=== PATIENT | male | born 1970 | race African-American/Black ===

== ENCOUNTER 2024-10-11 02:26 | Inpatient (IN) | payer SELFPAY ==
[~2024-10-11] VITALS: Ht 185.4 cm; Wt 127.9 kg
[2024-10-11] VITALS (64 sets, daily range): BP systolic 116–188; BP diastolic 73–118; PULSE 50–86; RESP 10–32; TEMP 36.4–36.9; O2SAT 95–100
[~2024-10-11 02:26] MED LIST: NONE REPORTED
[2024-10-11] MEDS: MORPHINE SULFATE 4 MG/ML INJ (FOR IV/IM USE) IV STA (02:49)
[2024-10-11] MEDS: NITROGLYCERIN OINT 1GM/INCH UDPKT TD ONE (02:49)
[2024-10-11] MEDS: ASPIRIN 81MG TABLET PO ONE (03:15)
[2024-10-11] MEDS: HEPARIN 5000 UNITS/ML VIAL IV ONE (03:15)
[2024-10-11 03:18] LABS: DIFFERENTIAL COMMENT 0; EOSINOPHILS % 0.7 % (0.0-5.0); HEMATOCRIT. 38.9 % (42.0-52.0); HEMOGLOBIN. 12.4 g/dL (14.0-18.0); LYMPHOCYTES % 39.9 % (20.0-50.0); MEAN CORPUSCULAR HEMOGLOBIN 25.3 pg (28.0-32.0); MEAN CORPUSCULAR VOLUME 79.2 fL (80.0-94.0); MEAN PLATELET VOLUME 9.6 fl (7.4-10.4); MONOCYTES % 7.8 % (2.0-8.0); NEUTROPHILS % 50.6 % (40.0-76.0); PLATELET 188 x1000/uL (130-400); RED CELL DISTRIBUTION WIDTH 17.6 % (11.6-14.6); WHITE BLOOD COUNT 8.7 x1000/uL (4.5-11.0)
[2024-10-11 03:25] LABS: PROTHROMBIN TIME 10.3 sec (9.6-11.0)
[2024-10-11] MEDS ORDERED: IODIXANOL 320 MG/ML 150ML BOTTLE IV ONE (03:26)
[2024-10-11] MEDS ORDERED: HEPARIN 1000 UNITS/ML 10ML ONE ×2 (03:26→03:48)
[2024-10-11] MEDS ORDERED: LIDOCAINE HCL 1% 20ML VIAL ONE (03:26)
[2024-10-11 03:33] LABS: CHLORIDE 102 mEq/L (98-107); POTASSIUM 3.3 mEq/L (3.5-5.1); SODIUM 136 mEq/L (136-145)
[2024-10-11 03:34] LABS: CARBON DIOXIDE 24 mEq/L (21-32)
[2024-10-11 03:35] LABS: CALCIUM 9.2 mg/dL (8.7-10.4)
[2024-10-11 03:39] LABS: CREATININE 0.9 mg/dL (0.6-1.3); GLUCOSE 184 mg/dL (70-105)
[2024-10-11 03:40] LABS: UREA NITROGEN BLOOD 15 mg/dL (9-23)
[2024-10-11 03:41] LABS: ALANINE AMINOTRANSFERASE 87 IU/L (10-49); ALBUMIN 4.1 g/dL (3.2-4.8); ASPARTATE AMINOTRANSFERASE 69 IU/L (<34)
[2024-10-11 03:42] LABS: BILIRUBIN DIRECT 0.2 mg/dL (<=3.0); BILIRUBIN TOTAL 0.6 mg/dL (0.1-1.0); PROTEIN TOTAL 7.7 g/dL (6.0-8.3)
[2024-10-11] MEDS ORDERED: FENTANYL CITRATE/PF 50MCG/ML 2ML VIAL ONE (03:46)
[2024-10-11] MEDS ORDERED: ONDANSETRON HCL 4MG/2ML INJ ONE (03:46)
[2024-10-11] MEDS ORDERED: MIDAZOLAM HCL 2 MG/2 ML VIAL ONE (03:47)
[2024-10-11] MEDS ORDERED: EPINEPHRINE 0.1MG/ML (1:10,000) 10ML SYR ONE (03:49)
[2024-10-11] MEDS ORDERED: ATROPINE SULFATE 1MG/10ML SYR ONE (03:49)
[2024-10-11] MEDS ORDERED: CLOPIDOGREL 75MG TABLET ONE (04:06)
[2024-10-11 04:10] LABS: TROPONIN I HIGH SENSITIVITY 158 ng/L (3.0-53)
[2024-10-11] MEDS ORDERED: ATROPINE SULFATE 1MG/10ML SYR IV PRN (04:45)
[2024-10-11] MEDS ORDERED: ONDANSETRON HCL 4MG/2ML INJ IV PRN (04:45)
[2024-10-11] MEDS: CARVEDILOL 6.25 MG TABLET PO SCH (09:00)
[2024-10-11] MEDS: POTASSIUM CHLORIDE 20MEQ/PACKET PO NR (09:09)
[2024-10-11] MEDS: ASPIRIN 81MG EC TABLET PO SCH (09:09)
[2024-10-11] MEDS: CLOPIDOGREL 75MG TABLET PO SCH (09:09)
[2024-10-11 11:32] LABS: TROPONIN I HIGH SENSITIVITY 13151 ng/L (3.0-53)
[2024-10-11] MEDS: ACETAMINOPHEN 325MG TABLET PO PRN (13:29)
[2024-10-11] MEDS: AMLODIPINE 10MG TABLET PO SCH (18:36)
[2024-10-11] MEDS: HYDRALAZINE HCL 100MG TABLET PO SCH (20:00)
[2024-10-11 20:28] LABS: HEPATITIS B SURFACE ANTIGEN NEGATIVE (Negative)
[2024-10-11 20:49] LABS: HEPATITIS C AB NON REACTIVE (Neg) (Negative)
[2024-10-11] MEDS: ATORVASTATIN CALCIUM 40MG TABLET PO SCH (21:00)
[2024-10-12] VITALS (13 sets, daily range): BP systolic 137–176; BP diastolic 71–97; PULSE 61–76; RESP 16–22; TEMP 36.6–37.2; O2SAT 95–100
[2024-10-12] MEDS: ZOLPIDEM TARTRATE 5MG TABLET PO PRN (03:15)
[2024-10-12 09:02] LABS: *AMPHETAMINES SCREEN URINE NEGATIVE (NEGATIVE); *BARBITURATES SCREEN URINE NEGATIVE (NEGATIVE); *BENZODIAZEPINES SCREEN URINE NEGATIVE (NEGATIVE); *COCAINE SCREEN URINE NEGATIVE (NEGATIVE); CANNABINOID URINE SCREEN PRESUMPTIVE POSITIVE (NEGATIVE); ECSTASY MDMA SCREEN URINE NEGATIVE (NEGATIVE); METHADONE URINE SCREEN NEGATIVE (NEGATIVE); OPIATES URINE SCREEN NEGATIVE (NEGATIVE); PHENCYCLIDINE URINE SCREEN NEGATIVE (NEGATIVE)
[2024-10-12 10:47] LABS: BASOPHILS % 0.4 % (0.0-2.0); DIFFERENTIAL COMMENT 0; EOSINOPHILS % 0.3 % (0.0-5.0); HEMOGLOBIN. 12.2 g/dL (14.0-18.0); LYMPHOCYTES % 14.2 % (20.0-50.0); MEAN CORPUSCULAR HEMOGLOBIN 25.1 pg (28.0-32.0); MEAN CORPUSCULAR VOLUME 78.4 fL (80.0-94.0); MEAN PLATELET VOLUME 9.5 fl (7.4-10.4); MONOCYTES % 7.8 % (2.0-8.0); NEUTROPHILS % 77.3 % (40.0-76.0); PLATELET 165 x1000/uL (130-400); RED BLOOD CELL COUNT 4.85 mill/uL (4.7-6.1); RED CELL DISTRIBUTION WIDTH 17.3 % (11.6-14.6); WHITE BLOOD COUNT 9.8 x1000/uL (4.5-11.0)
[2024-10-12 11:00] LABS: CHLORIDE 102 mEq/L (98-107); POTASSIUM 3.8 mEq/L (3.5-5.1); SODIUM 134 mEq/L (136-145)
[2024-10-12 11:01] LABS: CALCIUM 9.3 mg/dL (8.7-10.4); CARBON DIOXIDE 25 mEq/L (21-32)
[2024-10-12 11:06] LABS: CREATININE 0.8 mg/dL (0.6-1.3); GLUCOSE 131 mg/dL (70-105); UREA NITROGEN BLOOD 9 mg/dL (9-23)
[2024-10-12] MEDS: SENNOSIDES 8.6MG TABLET PO NR (15:31)
[2024-10-12] MEDS: LACTULOSE 20G/30ML UDC PO NR (15:31)
[2024-10-12] MEDS ORDERED: LIP40 MT (19:15)
[2024-10-12] MEDS ORDERED: ASPI-1406 MT (19:15)
[2024-10-12] MEDS ORDERED: CLOP-31 MT (19:15)
[2024-10-12] MEDS ORDERED: COR6 MT (19:15)
== END 2024-10-12 20:38 | disposition home or self-care (01) | DRG 174 ==
LOC: ER 02:26 → CVICU 03:24 → EDBEDREQTM 03:34 → EDBEDREQ 03:34 → 3WST 10-12 02:50
PROVIDERS: ADMIT Internal Medicine; ATTEND Internal Medicine
PROC: 027034Z Dilation of Coronary Artery, One Artery with Drug-eluting Intraluminal Device, Percutaneous Approach (ICD-10-PCS; principal; 2024-10-11)
PROC: 4A023N7 Measurement of Cardiac Sampling and Pressure, Left Heart, Percutaneous Approach (ICD-10-PCS; 2024-10-11)
PROC: B211YZZ Fluoroscopy of Multiple Coronary Arteries using Other Contrast (ICD-10-PCS; 2024-10-11)
PROC: B240ZZ3 Ultrasonography of Single Coronary Artery, Intravascular (ICD-10-PCS; 2024-10-11)
DX: I21.19 ST elevation (STEMI) myocardial infarction involving other coronary artery of inferior wall (principal); D64.9 Anemia, unspecified; I10 Essential (primary) hypertension; E87.6 Hypokalemia; F17.210 Nicotine dependence, cigarettes, uncomplicated; Z71.6 Tobacco abuse counseling; E78.5 Hyperlipidemia, unspecified
CPT/HCPCS: 36415; 71045; 80048; 80076; 80305; 83880; 84484; 85025; 85347; 86705; 87340; 92941; 93005; 93306; 93454; 99291; A4606; C1725; C1753; C1769; C1887; C1893; J0461; J1644; J2250; J2270; J2405; J3010; J3490; Q9967; C1874